=== PATIENT | male | born 1945 | race Caucasian/White ===

== ENCOUNTER 2023-05-14 14:15 | Emergency (ER) | payer OTHER, MEDICARE, SELFPAY ==
[2023-05-14] VITALS (10 sets, daily range): BP systolic 117–171; BP diastolic 52–71; PULSE 66–98; RESP 15–25; TEMP 37.8–39.5; O2SAT 95–98
--- NOTE | ~2023-05-14 | XR_ITS ---
EXAMINATION: XR chest 2V DATE: 05/14/2023 15:17 INDICATION: Sudden onset fatigue, malaise and fever TECHNIQUE: frontal and lateral views of the chest were obtained. COMPARISON: None FINDINGS: 1 streaky discoid atelectasis at the left costophrenic angle. No other airspace opacities, pulmonary edema, pleural effusion or pneumothorax. Heart size is normal. Atherosclerotic coronary artery calcif ications and/or stenting. Left pectoral implantable monitor and storage bin tender. Atherosclerotic aorta. IMPRESSION: 1. Mild atelectasis/scarring at the lateral left lung base. Reviewed, dictated and finalized at location A.
[2023-05-14 14:36] LABS: Glucose Point of Care 193 mg/dl (65-105)
--- NOTE | 2023-05-14 15:03 | ED.FEVER ---
HPI - Fever General Chief Complaint: Fever Stated Complaint: tremors Time Seen by Provider: 05/14/23 14:29 History of Present Illness HPI Narrative: 78-year-old male with a history of asthma, CAD s/p stent placement, insulin-dependent diabetes, hypertension and hyperlipidemia reports for evaluation for generalized malaise and fatigue since yesterday. Patient presents with his who assists with history. Patient states he flew to [place] from [place] yesterday and began feeling bad when he got off of the plane. He is reporting generalized tremulousness, fatigue, hot and cold flashes. He denies chest pain or shortness of breath, abdominal pain, nausea or vomiting, sore throat, cough, otalgia, vision changes, focal numbness or weakness, dysuria or hematuria, back pain or neck pain. He is reporting a headache to his left alevism that is a 4/10 and he reports it is mild . He states this is not the worst headache of his life and he feels it is related to him not having coffee this morning. He denies known fever at home. Related Data Allergies Allergy/AdvReac Type Severity Reaction Status Date / Time No Known Allergies Allergy Verified 05/14/23 15:30 Review of Systems Review of Systems: CONSTITUTIONAL: See HPI EYES: Denies visual changes, redness, or discharge. ENT: Denies rhinorrhea, congestion, sore throat, or otalgia. CARDIOVASCULAR: Denies chest pain, palpitations, or edema. RESPIRATORY: Denies cough or dyspnea. GASTROINTESTINAL: Denies abdominal pain, nausea, vomiting, or diarrhea. GENITOURINARY: Denies dysuria or hematuria. SKIN: Denies rash or itching. MUSCULOSKELETAL: Denies back pain, joint pain, or myalgia. NEUROLOGIC: Denies headache, numbness, dizziness, or weakness. PSYCHIATRIC: Denies anxiety or depression. Exam Narrative: GENERAL: Well-appearing, in no acute distress. Patient resting comfortably in exam bed. He is pleasant and conversational. HEAD: Normocephalic EYES: PERRLA, EOMI ENT: Nares clear. Mucous membranes moist. Oropharynx without tonsillar hypertrophy exudate or other lesions. NECK: Supple. No nuchal rigidity CHEST: No respiratory distress. Clear to auscultation, no adventitious breath sounds. HEART: Regular rate and rhythm. No murmur heard. Normal peripheral pulses. ABDOMEN: Soft, nontender, normal active bowel sounds. No CVA tenderness EXTREMITIES: Normal range of motion. No edema. SKIN: Warm, dry, no rash. NEURO: No focal deficits. Alert and oriented x3. Cranial nerves II through XII intact. Strength 5/5 in BUE and BLE. Sensation intact throughout. PSYCH: Normal mood and affect. Course Vital Signs Vital signs: Vital Signs Temperature 100.1 F H 05/14/23 14:20 Pulse Rate 98 05/14/23 14:20 Respiratory Rate 17 05/14/23 14:20 Blood Pressure 149/71 H 05/14/23 14:20 Pulse Oximetry 96 05/14/23 14:20 Temperature 100.0 F H 05/14/23 17:16 Pulse Rate 77 05/14/23 17:16 Respiratory Rate 15 05/14/23 17:16 Blood Pressure 148/70 H 05/14/23 17:16 Pulse Oximetry 96 05/14/23 17:16 MDM - Fever MDM Narrative Medical decision making narrative: 78-year-old male with a history of asthma, CAD s/p stent placement, insulin-dependent diabetes, hypertension and hyperlipidemia reports for evaluation for generalized malaise and fatigue since yesterday. Patient is well-appearing on exam. Abdomen is soft and nontender. He is neurovascularly intact. Vitals significant for mildly elevated blood pressure of 149/71 and a temperature of 100.1. Labs are significant for no leukocytosis or bandemia. Chemistries show sodium of 131 and BUN of 29 which may be secondary to dehydration. He flew on a plane yesterday and did not drink much water per the family. Urinalysis shows hematuria, no UTI. COVID and flu are negative. Chest x-ray is unremarkable. Lactic normal. Blood cultures pending. Patient received 1 g of Tylenol and fluids. Upon temp recheck, his temperature in
[2023-05-14 15:29] LABS: Appearance Urine Clear (Clear); Bacteria Urine None Seen /hpf; Bilirubin Urine 1+ (Negative); Blood Urine 2+ (Negative); Color Urine Dark Yellow (Yellow); Glucose Urine UA Negative (Negative); Ketones Urine Trace mg/dL (Negative); Leukocyte Esterase Ur Negative LEU/UL (Negative); Nitrate Urine Negative (Negative); Non Pathogenic Casts 0-2; Protein Urine 1+ mg/dL (Negative); Specific Grav Ur 1.026 (1.001-1.035); Squamous Epithelial Cell Urine None seen /hpf (Few); Urobilinogen Urine 0.2 mg/dL (<2.0); WBC Urine 0-5 /hpf
[2023-05-14 15:30] LABS: Add Urine Microscopic? YES
[2023-05-14] MEDS: ACETAMINOPHEN 500 MG TABLET 1000 MG PO (15:32)
[2023-05-14] MEDS: Please add drug allergy info to patient profile. 1 EACH XX (15:32)
[2023-05-14] MEDS: SODIUM CHLORIDE 0.9% IV 1,000 ML 999 ML IV CONT (15:34)
[2023-05-14 15:43] LABS: Basophils Percent Auto 0.2 % (0.2-1.2); Eosinophils Percent Auto 0.1 % (0-4.4); Hematocrit 41.7 % (42.0-52.0); Immature Granulocyte Absolute 0.03 K/mm3 (0.00-0.031); Immature Granulocyte Percent A 0.3 % (0-0.5); Lymphocytes Absolute Auto 0.62 K/mm3 (0.9-3.2); Mean Corpuscular HGB Conc 33.6 g/dl (32-36); Mean Corpuscular Volume 89.5 fl (80-100); Mean Platelet Volume 9.3 fl (7.4-10.4); Monocytes Absolute Auto 1.4 K/mm3 (0.1-0.6); Neutrophils Absolute Auto 6.8 K/mm3 (1.3-6.7); Neutrophils Percent Auto 76.4 % (45.5-73.1); Platelet Count Result 206 k/mm3 (150-375); Red Blood Count 4.66 M/mm3 (4.6-6.20); Red Cell Distribution Width 13.7 % (11.5-14.5); White Blood Count 8.9 K/mm3 (4.5-10.0)
[2023-05-14 15:57] LABS: Alanine Aminotransferase 33 U/L (6-50); Albumin Level 4.2 g/dL (3.5-5.1); Alkaline Phosphatase 48 U/L (38-126); Anion Gap 8 mmol/L (8-16); Aspartate Amino Transferase 40 U/L (17-59); Bilirubin,Total 1.2 mg/dL (0.2-1.3); Blood Urea Nitrogen 29 mg/dL (9-20); Calcium 8.9 mg/dL (8.4-10.2); Carbon Dioxide 25 mmol/L (22-30); Chloride 98 mmol/L (98-107); Estimated CRCL calculation 41 ml/min; Estimated Glomerular Filt Rate 53; Glucose 188 mg/dL (65-110); Potassium 4.2 mmol/L (3.4-5.0); Sodium 131 mmol/L (137-145)
[2023-05-14 16:18] LABS: Influenza A QL RT-PCR Negative (Negative); Influenza B QL RT-PCR Negative (Negative); SARS-CoV-2 RNA PCR Negative (Negative)
[2023-05-14] MEDS: KETOROLAC 15 MG/ML VIAL (*BKC) IV PUSH (16:35)
[2023-05-14 17:42] LABS: Lactic Acid Reflex 1.1 mmol/L (0.7-2.0)
== END 2023-05-14 18:15 | disposition home or self-care (01) ==
PROVIDERS: Emergency Provider Physician Assistant
DX: B34.9 Viral infection, unspecified (principal); I25.10 Atherosclerotic heart disease of native coronary artery without angina pectoris; E78.5 Hyperlipidemia, unspecified; E11.9 Type 2 diabetes mellitus without complications; Z79.4 Long term (current) use of insulin; I10 Essential (primary) hypertension; Z20.822 Contact with and (suspected) exposure to COVID-19
CPT/HCPCS: 36415; 71046; 80053; 81001; 82948; 83605; 85025; 87040; 87636; 96361; 96374; 99284; A9270; J1885; J7030